=== PATIENT | female | born 1990 | race Caucasian/White ===

== ENCOUNTER → 2016-11-09 | Outpatient (CLI) | payer MEDICAID ==
[~2016-11-09] MED LIST: FERR-84 PO; HYDR-3812 PO; IBUP-1773 PO; PREN1TAB71 PO
--- NOTE | 2016-11-09 13:57 | Diagnostic Imaging Report ---
EXAMINATION: Transabdominal and transvaginal pelvic ultrasound. INDICATION: Pelvic pain. FINDINGS: The uterus is 7.9 x 6.8 x 4.7 cm. The endometrial stripe is 1.6 cm in thickness. The patient reports LMP date of 11/07/2016. This is suggestive of abnormal thickening of the endometrium; however, the endometrium is uniform in echogenicity with subtle trilaminar pattern and with no internal abnormal color Doppler seen. Correlate clinically. Minimal amount of endometrial fluid in the lower uterine segment is seen. The right ovary is 3 x 3.5 x 4.4 cm. There is a dominant follicle measuring 2.1 cm with no solid mass seen. Arterial waveforms are demonstrated. The left ovary is 2.9 x 1.8 x 2.3 cm with small follicles identified and arterial flow also seen. IMPRESSION: Homogeneous thickening of the endometrium without internal vascularity demonstrated with color Doppler. The endometrium is particularly thickened based on the recent LMP dates provided. Consider possibility of endometrial hyperplasia or other endometrial abnormality. Correlate clinically and with followup exams. Dictated by: Dictated on workstation # [id number]
== END ==
LOC: RAD 11:40
PROVIDERS: ATTEND Nurse Practitioner Family
DX: R93.8 Abnormal findings on diagnostic imaging of other specified body structures (principal); R10.2 Pelvic and perineal pain
CPT/HCPCS: 76830; 76856

== ENCOUNTER → 2017-08-14 | Outpatient (CLI) | payer MEDICAID ==
[~2017-08-14] MED LIST changes: +ACHD5005 PO; +GADOBUTROL 10 MMOL/10 ML (GADAVIST) VIAL IV ONE; -HYDR-3812 PO
--- NOTE | 2017-08-14 16:57 | Diagnostic Imaging Report ---
PROCEDURE: MRI right joint lower extremity with and without contrast. TECHNIQUE: Multiplanar, multisequence pre and post contrast-enhanced SAIMA of the right joint lower extremity was accomplished. INDICATION: Bone lesion seen on outside imaging. COMPARISON: None available. FINDINGS: Bones: No fracture, bone marrow edema or focal osseous lesion. There is no pathologic enhancement around the right knee. Joint: No knee joint effusion. Small Altman's cyst. No pathologic enhancement around the joint. Menisci: There is no tear of the medial or lateral menisci. Ligaments: The ACL and PCL are normal. The medial and lateral collateral ligamentous complexes are intact. Articular cartilage: Articular cartilage appears well preserved without areas of full-thickness chondral loss. IMPRESSION: 1. No focal osseous lesion or pathologic soft tissue enhancement. 2. Small Altman's cyst. 3. No internal derangement. Dictated by: Dictated on workstation # [id number]
== END ==
LOC: RAD 15:18
PROVIDERS: ATTEND Nurse Practitioner Family
DX: M71.21 Synovial cyst of popliteal space [Baker], right knee (principal)
CPT/HCPCS: 73723